=== PATIENT | female | born 1945 | race Two or more races ===

== ENCOUNTER → 2019-03-01 | Outpatient (CLI) | payer OTHER ==
[~2019-03-01] MED LIST: ALBUTEROL2.5 MG/3 M IH; CRESTOR10 MG; OSEL75CA PO; TUSSI-PRES LIQ118 ML PO
== END | disposition home or self-care (01) ==
LOC: RAD 09:21
DX: M19.91 Primary osteoarthritis, unspecified site (principal)

== ENCOUNTER 2023-02-28 20:25 | Emergency (ER) | payer OTHER ==
[~2023-02-28] VITALS: Ht 152.4 cm; Wt 83.9 kg
[2023-03-01] MEDS ORDERED: PEPCID40 MG PO (06:26)
[2023-03-01] MEDS ORDERED: ONDANSETRON ODT4 MG PO (06:26)
== END 2023-03-01 06:46 ==
LOC: ER 20:25
PROVIDERS: Emergency Medicine
DX: R10.84 Generalized abdominal pain (principal); K76.89 Other specified diseases of liver; K52.9 Noninfective gastroenteritis and colitis, unspecified; I10 Essential (primary) hypertension
CPT/HCPCS: 36415; 74177; 96365; 96366; 99284; J0744; J2180; J3490; Q9965

== ENCOUNTER 2023-03-08 09:24 | Emergency (ER) | payer OTHER ==
[~2023-03-08] VITALS: Ht 160 cm; Wt 90.7 kg
[~2023-03-08 09:24] MED LIST changes: +ONDANSETRON ODT4 MG PO; +PEPCID40 MG PO
[2023-03-08] MEDS ORDERED: DUI500 PO (12:47)
== END 2023-03-08 13:01 | disposition home or self-care (01) ==
LOC: ER 09:24
PROVIDERS: General Practice
DX: N39.0 Urinary tract infection, site not specified (principal)
CPT/HCPCS: 36415; 96365; 96372; 99284; J0696; J1885; J3490

== ENCOUNTER 2023-03-18 07:05 | Outpatient (CLI) | payer OTHER ==
[~2023-03-18 07:05] MED LIST changes: +DUI500 PO
== END 2023-03-18 07:10 | disposition home or self-care (01) ==
LOC: RX STUDY 07:05
PROVIDERS: ATTEND Colon & Rectal Surgery
DX: K56.600 Partial intestinal obstruction, unspecified as to cause (principal)

== ENCOUNTER 2023-04-19 14:15 | Emergency (ER) | payer OTHER ==
[~2023-04-19] VITALS: Ht 162.6 cm; Wt 64.0 kg
[2023-04-19 17:38] LABS: HEMATOCRIT 43.2 % (36.0-45.00); HEMOGLOBIN 14.6 g/dL (12.0-15.00); MEAN CELL VOLUME 90.3 fL (80.00-100.00); MEAN CORPUSCULAR HEMOGLOBIN 30.5 pg (27.00-32.0); MEAN CORPUSCULAR HGB CONC 33.8 g/dl (32.0-36.0); PLATELET COUNT 274 K/uL (150-450); RED BLOOD COUNT 4.79 M/uL (4.00-6.00); RED CELL DISTRIBUTION WIDTH 14.4 % (11.5-14.5)
[2023-04-19 18:13] LABS: CREATININE SERUM 0.89 mg/dL (0.55-1.02); GFR 61.5; POTASSIUM 4.01 mEq/L (3.5-5.1)
[2023-04-19 19:29] LABS: URINE APPEARANCE Clear; URINE BILIRRUBIN Negative (NEGATIVE); URINE BLOOD Negative; URINE COLOR Yellow; URINE GLUCOSE Negative (NEGATIVE); URINE LEUKOCYTE Moderate; URINE NITRATE Negative; URINE PROTEIN Negative (NEGATIVE); URINE UROBILINOGEN 0.2 E.U./dl
[2023-04-19 19:32] LABS: URINE BACTERIA 206.6 uL (0.0-1933); URINE EPITHELIAL CELLS 9.8 uL (0.0-38.8); URINE RBC 27.5 uL (0.0-20.8); URINE WBC 145.7 uL (0.0-23.2)
[2023-04-19] MEDS ORDERED: ONDANSETRON HCL4 MG PO (20:16)
[2023-04-19] MEDS ORDERED: PEPCID AC20 MG PO (20:16)
[2023-04-19] MEDS ORDERED: DUI500 PO (20:16)
== END 2023-04-19 21:17 ==
LOC: ER 14:15
PROVIDERS: Nurse Practitioner Family
DX: N39.0 Urinary tract infection, site not specified (principal); R10.84 Generalized abdominal pain; R11.10 Vomiting, unspecified
CPT/HCPCS: 36415; 96365; 96366; 99282; J3490; J7030

== ENCOUNTER → 2023-06-29 | Emergency (ER) | payer OTHER ==
[~2023-06-29] VITALS: Ht 162.6 cm; Wt 62.6 kg
[~2023-06-29] MED LIST changes: +ONDANSETRON HCL4 MG PO; +PEPCID AC20 MG PO
== END | disposition left against medical advice (07) ==
LOC: ER 04:34
DX: Z53.21 Procedure and treatment not carried out due to patient leaving prior to being seen by health care provider (principal)